=== PATIENT | female | born 1990 | race Hispanic/Latino ===

== ENCOUNTER 2019-01-19 17:25 | Emergency (ER) | payer OTHER, SELFPAY ==
[2019-01-19 17:32] VITALS: BP 118/73; PULSE 87; RESP 21; TEMP 37.2; O2SAT 100
--- NOTE | 2019-01-19 17:43 | PC.NURSE ---
25 weeks , reports, shortness of breath for 2 months, +dizziness. coughing non productive, evaluated by cardiology last sunday, ekg and echo, with no result at this time. denies fever,vomiting, denies vaginal dc. + movement. lmp july 26 a/m0
[2019-01-19] MEDS: ALBUTEROL 2.5 MG/3 ML NEB (ADULT) INH (17:52)
[2019-01-19 17:53] VITALS: PULSE 94; RESP 16; O2SAT 100
[2019-01-19 19:22] LABS: Add Manual Diff / Slide Review NO; Basophils Absolute Auto 0 /uL (0-100); Basophils Percent Auto 0.5 % (0-2); Eosinophils Absolute Auto 100 /uL (0-450); Eosinophils Percent Auto 1.4 % (2-4); Hematocrit 33.1 % (36-46); Hemoglobin 11.3 g/dL (12.0-16.0); Lymphocytes Absolute Auto 2400 /uL (1100-4500); Lymphocytes Percent Auto 27.8 % (25-40); Mean Corpuscular HGB Conc 34.3 % (30-36); Mean Corpuscular Hemoglobin 31.4 PG (26-34); Mean Corpuscular Volume 91.5 fL (80-100); Monocytes Absolute Auto 600 /uL (0-900); Monocytes Percent Auto 6.6 % (3-14); Neutrophils Absolute Auto 5500 /uL (1500-7000); Neutrophils Percent Auto 63.7 % (50-75); Platelet Count 228 X10^3/uL (150-400); Red Blood Cell Count 3.62 X10^6/uL (4.0-5.2); Red Cell Distribution Width 12.8 % (11.6-14.8); White Blood Cell Count 8.7 X10^3/uL (4.5-11.0)
[2019-01-19 19:38] LABS: Alanine Aminotransferase 11 IU/L (<35); Albumin 3.6 g/dL (3.5-5.0); Albumin Globulin Ratio 1.2 (1.0-2.8); Alkaline Phosphatase 72 U/L (38-126); Aspartate Aminotransferase 19 IU/L (14-36); B Type Natriuretic Peptide < 100 (<100); BUN Creatinine Ratio 22.5 (6-22); Bilirubin Total 0.3 mg/dL (0.2-1.3); Blood Urea Nitrogen 9 mg/dL (7-17); Calcium 8.6 mg/dL (8.4-10.2); Carbon Dioxide 24 mmol/L (22-32); Chloride 105 mmol/L (98-107); Estimated Glomerular Filt Rate > 60.0 mL/min (>60); Globulin 3.1 g/dL (1.7-4.1); Glucose 109 mg/dL (70-100); HEMOLYSIS < 15 (0-50); Potassium 3.6 mmol/L (3.4-5.1); Sodium 138 mmol/L (137-145); Total Protein 6.7 g/dL (6.3-8.2)
[2019-01-19] MEDS: ALBUTEROL HFA PREPACK 1 BOX MISC (20:24)
[2019-01-19 20:28] VITALS: BP 103/62; PULSE 84; RESP 16; TEMP 37; O2SAT 100
[2019-01-19 20:37] VITALS: PULSE 87; RESP 16; O2SAT 99
--- NOTE | 2019-01-19 21:11 | ED_ITS ---
HPI - SOB/Dyspnea <KHADRA Black - Last Filed: 01/19/19 21:15> General Chief Complaint: Shortness of Breath/Dyspnea Stated Complaint: Difficulty Breathing, Chest Hurts, Coughing Time Seen by Provider: 01/19/19 17:55 Source: patient and family Mode of arrival: Ambulatory Limitations: no limitations History of Present Illness HPI Narrative: The patient is a 28-year-old female who is 25 weeks who presents for chief complaint of shortness of breath for several weeks to months. She states she has seen his primary care provider for this. She has been referred to Cardiology and had an echo and other testing completed and is being seen by them for follow-up. She denies any fevers nausea vomiting or diarrhea. She denies any dysuria urgency or frequency. She denies any vaginal discharge. She states that sometimes she has a cough. She denies a productive cough. She states she is here because she never got any answers from Cardiology or PCP. She has not called them for follow-up. She states good movement. Related Data Previous Rx's Medication Instructions Recorded sulfamethoxazole-trimethoprim 1 tab PO BID 10 Days #0 tab 01/18/16 Allergies Allergy/AdvReac Type Severity Reaction Status Date / Time No Known Allergies Allergy Uncoded 06/27/17 12:31 Review of Systems <YAQUELIN Black - Last Filed: 01/19/19 21:15> Review of Systems Narrative: GENERAL: Denies chills, fatigue, malaise, fever, sweats. HEENT: Denies sinus pain, ear pain, sore throat, difficulty swallowing, dizziness. RESPIRATORY: See HPI CARDIOVASCULAR: Denies chest pain, palpitations, orthopnea, edema, GASTROINTESTINAL: Denies nausea, vomiting, abdominal pain, diarrhea, constipation, melena. : Denies dysuria, frequency, incontinence, hematuria, urinary retention. MUSCULOSKELETAL: denies weakness, joint pain, or bony pain SKIN: Denies rash, skin lesions, or other NEUROLOGIC: Denies weakness, headache, numbness, change in speech, confusion, seizures, incoordination. PSYCHIATRIC: No concerning psychosocial issues. 12 point review of systems is negative except for those stated above Exam <KHADRA Black - Last Filed: 01/19/19 21:15> Narrative Exam Narrative: GENERAL: This is a well-nourished, well-developed patient, in mild distress. HEAD: Atraumatic. Normocephalic. No temporal or scalp tenderness. EYES: Pupils equal round and reactive. Extraocular motions intact. No scleral icterus. No injection or drainage. ENT: Nose without bleeding, purulent drainage or septal hematoma. Throat without erythema, tonsillar hypertrophy or exudate. Uvula midline. Airway patent. NECK: Trachea midline. No JVD or lymphadenopathy. Supple, nontender, no meningeal signs. CARDIOVASCULAR: Regular rate and rhythm without murmurs, gallops, or rubs. RESPIRATORY: Clear to auscultation. Breath sounds equal bilaterally. No wheezes, rales, or rhonchi. Occasional bronchospastic cough. No increased respiratory effort. No accessory muscle use. No stridor. GASTROINTESTINAL: Abdomen soft, non-tender, nondistended. Fundus palpable. No hepato-splenomegaly, or palpable masses. No guarding. EXTREMITIES: No clubbing, cyanosis, or edema. No joint tenderness, effusion, or edema noted. BACK: Nontender without deformity or crepitance. No flank tenderness. NEURO: AOx3. SKIN: No rash or erythema. Initial Vital Signs Initial Vital Signs: Vital Signs Temperature 98.9 F 01/19/19 17:32 Pulse Rate 87 01/19/19 17:32 Respiratory Rate 21 01/19/19 17:32 Blood Pressure 118/73 01/19/19 17:32 Pulse Oximetry 100 01/19/19 17:32 <Anthony De Luna DO - Last Filed: 01/19/19 23:00> Initial Vital Signs Initial Vital Signs: Vital Signs Temperature 98.9 F 01/19/19 17:32 Pulse Rate 87 01/19/19 17:32 Respiratory Rate 21 01/19/19 17:32 Blood Pressure 118/73 01/19/19 17:32 Pulse Oximetry 100 01/19/19 17:32 Course <KHADRA Black - Last Filed: 01/19/19 21:15> Orders Ordered: ED Orders 01/19/19 17:37 RT Consult Eval and Treat NOW 01/19/19 18:07 EKG-12 Lead Stat 01/19/19 19:13 B Type Natriuretic Peptide Stat Complete Blood Count AUTO DIFF Stat Comprehensive Metabolic Panel Stat Discontinued Medications Albuterol (Ventolin) 2.5 mg INH NOW ONE Stop: 01/19/19 17:48 Last Admin: 01/19/19 17:52 Dose: 2.5 mg Documented by: JETT Albuterol (Ventolin Hfa Prepack) 1 box [facility] ONE Stop: 01/19/19 20:02 Last Admin: 01/19/19 20:24 Dose: 1 box Documented by: LREED Vital Signs Vital signs: Vital Signs - 8 hr 01/19/19 17:32 01/19/19 17:53 01/19/19 20:28 Temperature 98.9 F 98.6 F Pulse Rate 87 94 H 84 Respiratory Rate 21 16 16 Blood Pressure 118/73 Blood Pressure [Left Arm] 103/62 Pulse Oximetry 100 100 100 01/19/19 20:37 Temperature Pulse Rate 87 Respiratory Rate 16 Blood Pressure Blood Pressure [Left Arm] Pulse Oximetry 99 <Anthony De Luna DO - Last Filed: 01/19/19 23:00> Orders Ordered: ED Orders 01/19/19 17:37 RT Consult Eval and Treat NOW 01/19/19 18:07 EKG-12 Lead Stat 01/19/19 19:13 B Type Natriuretic Peptide Stat Complete Blood Count AUTO DIFF Stat Comprehensive Metabolic Panel Stat Discontinued Medications Albuterol (Ventolin) 2.5 mg INH NOW ONE Stop: 01/19/19 17:48 Last Admin: 01/19/19 17:52 Dose: 2.5 mg Documented by: JETT Albuterol (Ventolin Hfa Prepack) 1 box [facility] ONE Stop: 01/19/19 20:02 Last Admin: 01/19/19 20:24 Dose: 1 box Documented by: LREED Vital Signs Vital signs: Vital Signs - 8 hr 01/19/19 17:32 01/19/19 17:53 01/19/19 20:28 Temperature 98.9 F 98.6 F Pulse Rate 87 94 H 84 Respiratory Rate 21 16 16 Blood Pressure 118/73 Blood Pressure [Left Arm] 103/62 Pulse Oximetry 100 100 100 01/19/19 20:37 Temperature Pulse Rate 87 Respiratory Rate 16 Blood Pressure Blood Pressure [Left Arm] Pulse Oximetry 99 MDM - SOB/Dyspnea <KHADRA Black - Last Filed: 01/19/19 21:15> Lab Data Result diagrams: 01/19/19 19:13 01/19/19 19:13 Labs: Lab Results 01/19/19 01/19/19 Range/Units 19:13 19:13 WBC 8.7 (4.5-11.0) X10^3/uL RBC 3.62 L (4.0-5.2) X10^6/uL Hgb 11.3 L (12.0-16.0) g/dL Hct 33.1 L (36-46) % MCV 91.5 (80-100) fL MCH 31.4 (26-34) PG MCHC 34.3 (30-36) % RDW 12.8 (11.6-14.8) % Plt Count 228 (150-400) X10^3/uL Neut % (Auto) 63.7 (50-75) % Lymph % (Auto) 27.8 (25-40) % [place] % (Auto) 6.6 (3-14) % Eos % (Auto) 1.4 L (2-4) % Baso % (Auto) 0.5 (0-2) % Neut # (Auto) 5500 (8771-1086) /uL Lymph # (Auto) 2400 (6323-6804) /uL [place] # (Auto) 600 (0-900) /uL Eos # (Auto) 100 (0-450) /uL Baso # (Auto) 0 (0-100) /uL Sodium 138 (137-145) mmol/L Potassium 3.6 (3.4-5.1) mmol/L Chloride 105 (98-107) mmol/L Carbon Dioxide 24 (22-32) mmol/L BUN 9 (7-17) mg/dL Creatinine 0.40 L (0.52-1.04) mg/dL Estimated GFR > 60.0 (>60) mL/min BUN/Creatinine Ratio 22.5 H (6-22) Glucose 109 H (70-100) mg/dL Calcium 8.6 (8.4-10.2) mg/dL Total Bilirubin 0.3 (0.2-1.3) mg/dL AST 19 (14-36) IU/L ALT 11 (<35) IU/L Alkaline Phosphatase 72 (38-126) U/L B-Natriuretic Peptide < 100 (<100) Total Protein 6.7 (6.3-8.2) g/dL Albumin 3.6 (3.5-5.0) g/dL Globulin 3.1 (1.7-4.1) g/dL Albumin/Globulin Ratio 1.2 (1.0-2.8) Urine Dip Bedside Urine Glucose Negative Bedside Urine Bilirubin - Negative Bedside Urine Ketone +/- 5 Urine Specific [place] 1.025 Bedside Urine Occult Blood - Negative Bedside Urine pH 6 Bedside Urine Protein +/- 15 Bedside Urine Urobilinogen +/- 1mg Bedside Urine Nitrite - Negative Bedside Urine Leukocytes - Negative Esterase ECG Data Attestation: I personally reviewed and interpreted this ECG as follows: Interpretation: Sinus tachycardia. Ventricular rate 101. P.r. interval 127. QRS duration 89. No ectopy noted. No ST elevation or depression noted. MDM Narrative Medical decision making narrative: The patient is a 28-year-old female who presents for chief complaint of continued shortness of which has been ongoing for the past several weeks to months. She is . She is in no acute respiratory distress, she is not hypoxic and not tachycardic exam. She has been evaluated with an echocardiogram, and seen primary care as well as sheet sorter and Cardiology. I have decreased suspicion of AA PE as she is not tachycardic, not hypoxic and this cough has been going on for weeks. Her shortness of breath is associated with cough. Her cough did respond well in the emergency department to a dose of albuterol, so she was given spacer training as well as a take, but albuterol. Urine has no signs of infection and her heart tones were in the 140s. I discussed at length the importance of follow-up with PCP as well as OBGYN. She has no questions or concerns upon discharge and states understanding of return precautions as well as follow-up care. <Anthony De Luna, DO - Last Filed: 01/19/19 23:00> Lab Data Labs: Lab Results 01/19/19 01/19/19 Range/Units 19:13 19:13 WBC 8.7 (4.5-11.0) X10^3/uL RBC 3.62 L (4.0-5.2) X10^6/uL Hgb 11.3 L (12.0-16.0) g/dL Hct 33.1 L (36-46) % MCV 91.5 (80-100) fL MCH 31.4 (26-34) PG MCHC 34.3 (30-36) % RDW 12.8 (11.6-14.8) % Plt Count 228 (150-400) X10^3/uL Neut % (Auto) 63.7 (50-75) % Lymph % (Auto) 27.8 (25-40) % [place] % (Auto) 6.6 (3-14) % Eos % (Auto) 1.4 L (2-4) % Baso % (Auto) 0.5 (0-2) % Neut # (Auto) 5500 (5642-1212) /uL Lymph # (Auto) 2400 (9142-9919) /uL [place] # (Auto) 600 (0-900) /uL Eos # (Auto) 100 (0-450) /uL Baso # (Auto) 0 (0-100) /uL Sodium 138 (137-145) mmol/L Potassium 3.6 (3.4-5.1) mmol/L Chloride 105 (98-107) mmol/L Carbon Dioxide 24 (22-32) mmol/L BUN 9 (7-17) mg/dL Creatinine 0.40 L (0.52-1.04) mg/dL Estimated GFR > 60.0 (>60) mL/min BUN/Creatinine Ratio 22.5 H (6-22) Glucose 109 H (70-100) mg/dL Calcium 8.6 (8.4-10.2) mg/dL Total Bilirubin 0.3 (0.2-1.3) mg/dL AST 19 (14-36) IU/L ALT 11 (<35) IU/L Alkaline Phosphatase 72 (38-126) U/L B-Natriuretic Peptide < 100 (<100) Total Protein 6.7 (6.3-8.2) g/dL Albumin 3.6 (3.5-5.0) g/dL Globulin 3.1 (1.7-4.1) g/dL Albumin/Globulin Ratio 1.2 (1.0-2.8) Urine Dip Bedside Urine Glucose Negative Bedside Urine Bilirubin - Negative Bedside Urine Ketone +/- 5 Urine Specific [place] 1.025 Bedside Urine Occult Blood - Negative Bedside Urine pH 6 Bedside Urine Protein +/- 15 Bedside Urine Urobilinogen +/- 1mg Bedside Urine Nitrite - Negative Bedside Urine Leukocytes - Negative Esterase Discharge Plan Departure Patient Disposition: Home Clinical Impression: Cough, Breath shortness, Asthma Discharge Date/Time: 01/19/19 21:12 Instructions: DI for Asthma -- Adult, DI for Shortness of Breath Activity Restrictions/Additional Instructions: Your lab work came back Grossly normal today. Your responded well to albuterol, so I gave you a prescription take-home pack and spacer. Please follow up with primary care Provider in OBGYN as soon as possible. I also suggest you continue to follow up with Cardiology as previously suggested Please come back to the emergency department for any acute concerns. Prescriptions: No Action sulfamethoxazole-trimethoprim 800 MG/160 MG tablet 1 tab PO BID 10 Days Qty: 0 RF: 0 Referrals: Le Vergara MD [Non-Staff] - <Anthony De Luna DO - Last Filed: 01/19/19 23:00> Sign Out Provider Sign Out Attestation: Dr eD Luna Co-Sign Statement: I was available for consultation during this patient's emergency department visit. This chart is signed by myself for administrative purposes only. I did not have direct contact with this patient during this visit. They were seen independently by the APC.
== END 2019-01-19 21:12 | disposition home or self-care (01) ==
PROVIDERS: Emergency Provider Nurse Practitioner Family
DX: R05 Cough (principal); R06.02 Shortness of breath; J45.909 Unspecified asthma, uncomplicated; R00.0 Tachycardia, unspecified
CPT/HCPCS: 80053; 81003; 83880; 85025; 93005; 93010; 94150; 94640; 99283; 99284; J7613

== ENCOUNTER → 2019-09-17 10:17 | Outpatient (CLI) | payer OTHER, SELFPAY ==
--- NOTE | 2019-09-17 10:21 | DI.RAD.S_ITS ---
PROCEDURE: XR HIP W PEL IF DONE RT 2V INDICATIONS: R hip pain x approx 10 months starting while . TECHNIQUE: AP pelvis with lateral view(s) of the right hip(s). COMPARISON: None. FINDINGS: Bones: No acute fracture or dislocation is evident involving the right hip. There no significant degenerative changes. No suspicious osseous lesions are evident. The remainder of the image osseous structures of the pelvis appear to be grossly intact. There may be mild degenerative changes of the included lower lumbar spine, not adequately characterized. Soft tissues: The visualized bowel gas pattern is normal. No suspicious soft tissue calcifications. IMPRESSION: Unremarkable right hip radiographs. No fractures or significant degenerative changes. Dictated by: Anrde Gleason M.D. on 09/17/2019 at 10:08 Approved by: Andre Gleason M.D. on 09/17/2019 at 10:12
== END ==
PROVIDERS: Referring Provider Registered Nurse Diabetes Educator; Visit Provider Registered Nurse Diabetes Educator
DX: M25.551 Pain in right hip (principal)
CPT/HCPCS: 73502

== ENCOUNTER 2020-03-15 23:57 | Emergency (ER) | payer OTHER, SELFPAY ==
[2020-03-16 00:03] VITALS: BP 115/63; PULSE 89; RESP 24; TEMP 36.9; O2SAT 100
[2020-03-16 00:27] LABS: Add Manual Diff / Slide Review NO; Basophils Absolute Auto 100 /uL (0-100); Basophils Percent Auto 0.9 % (0-2); Eosinophils Absolute Auto 400 /uL (0-450); Eosinophils Percent Auto 4.8 % (2-4); Hematocrit 39.1 % (36-46); Hemoglobin 13.2 g/dL (12.0-16.0); Lymphocytes Absolute Auto 3600 /uL (1100-4500); Lymphocytes Percent Auto 42.4 % (25-40); Mean Corpuscular HGB Conc 33.8 % (30-36); Mean Corpuscular Hemoglobin 30.4 PG (26-34); Monocytes Absolute Auto 500 /uL (0-900); Monocytes Percent Auto 6.2 % (3-14); Neutrophils Absolute Auto 3900 /uL (1500-7000); Neutrophils Percent Auto 45.7 % (50-75); Platelet Count 238 X10^3/uL (150-400); Red Blood Cell Count 4.34 X10^6/uL (4.0-5.2); Red Cell Distribution Width 12.5 % (11.6-14.8); White Blood Cell Count 8.5 X10^3/uL (4.5-11.0)
--- NOTE | 2020-03-16 00:30 | ED.ABDPAIN ---
HPI - Abdominal Pain General Chief Complaint: Abdominal Pain Stated Complaint: severe pain in abd/pelvic area Time Seen by Provider: 03/16/20 00:30 Source: patient Mode of arrival: Ambulatory History of Present Illness HPI narrative: 29-year-old presents with severe left pelvic pain. She describes having some mild cramps on both March 10 and and she is tumors that this was just cramping. On the at 11:00 p.m. she began having severe pain initially on the right side than radiating into the left lower quadrant. As she walks into the emergency room she is having difficulty standing up and has a shuffling gait. She describes no fevers, no new sexual contacts, no vaginal discharge, no dysuria, chest pain, dyspnea, diarrhea. Related Data Home Medications Medication Instructions Recorded Confirmed No Known Home Medications 09/08/19 09/08/19 Allergies Allergy/AdvReac Type Severity Reaction Status Date / Time adhesive tape Allergy Severe buned skin Verified 09/08/19 16:04 shrimp Allergy Severe closes Verified 09/08/19 16:04 throat [place] Allergy Severe blisters Uncoded 09/08/19 16:04 and swollen tongue No Known Allergies Allergy Uncoded 06/27/17 12:31 Review of Systems Review of Systems ROS Unobtainable: All systems reviewed & are unremarkable except as noted in HPI and below Patient History Medical History (Updated 03/16/20 @ 04:17 by Jocelyne Saleem MD) Hip pain Social History Smoking Status: Never smoker second hand exposure: No alcohol intake: current (occassionaly) substance use type: does not use Smoking Status: Never smoker Exam Narrative Exam Narrative: General: Healthy appearing, in significant distress with low pelvic pain unable to stand up straight, able to give a complete coherent history HEENT: Moist mucous membranes, normal sclera with reactive pupils, Respiratory: Lungs are clear to auscultation, no wheezing no rales no rhonchi. Full and symmetrical air movement Cardiac: Regular rate and rhythm no murmurs no bruits Abdomen: Soft, exquisitely tender in lower quadrants no flank pain Skin: Warm and dry, no rashes Neurologic: Grossly neurologically intact with no obvious asymmetries or abnormalities Extremities: No trauma, well perfused Pelvic: Healthy appearing external genitalia, no vaginal discharge, no tenderness vaginal introitus. Significant tenderness in the posterior portion of the vagina with significant cervical motion tenderness. Psych: Cooperative, appropriate insight and affect Initial Vital Signs Initial Vital Signs: Vital Signs Temperature 98.4 F 03/16/20 00:03 Pulse Rate 89 03/16/20 00:03 Respiratory Rate 24 03/16/20 00:03 Blood Pressure 115/63 03/16/20 00:03 Pulse Oximetry 100 03/16/20 00:03 Course Orders Ordered: ED Orders 03/16/20 EKG-12 Lead Stat 03/16/20 00:15 Complete Blood Count AUTO DIFF Stat Comprehensive Metabolic Panel Stat Lipase Stat Partial Thromboplastin Time Stat Prothrombin Time INR Stat 03/16/20 00:30 Chlamydia Gonorrhea PCR -URINE Stat 03/16/20 00:41 US pelvic complete Stat 03/16/20 01:54 CT abdomen pelvis w con Stat Discontinued Medications Ketorolac Tromethamine (Ketorolac 60 Mg/2 Ml Vial) 15 mg IV NOW ONE Stop: 03/16/20 00:42 Last Admin: 03/16/20 00:48 Dose: 15 mg Documented by: ADRIANNA Vital Signs Vital signs: Vital Signs - 8 hr 03/16/20 00:03 Temperature 98.4 F Pulse Rate 89 Respiratory Rate 24 Blood Pressure 115/63 Pulse Oximetry 100 MDM - Abdominal Pain Medical Records Attestation: I reviewed the patient's medical records. Lab Data Attestation: I reviewed the patient's lab results. Result diagrams: 03/16/20 00:15 03/16/20 00:15 Labs: Lab Results 03/16/20 03/16/20 03/16/20 Range/Units 00:15 00:15 00:15 WBC 8.5 (4.5-11.0) X10^3/uL RBC 4.34 (4.0-5.2) X10^6/uL Hgb 13.2 (12.0-16.0) g/dL Hct 39.1 (36-46) % MCV 90.0 (80-100) fL MCH 30.4 (26-34) PG MCHC 33.8 (30-36) % RDW 12.5 (11.6-14.8) % Plt Count 238 (150-400) X10^3/uL Neut % (Auto) 45.7 L (50-75) % Lymph % (Auto) 42.4 H (25-40) % [place] % (Auto) 6.2 (3-14) % Eos % (Auto) 4.8 H (2-4) % Baso % (Auto) 0.9 (0-2) % Neut # (Auto) 3900 (4097-9760) /uL Lymph # (Auto) 3600 (2552-1603) /uL [place] # (Auto) 500 (0-900) /uL Eos # (Auto) 400 (0-450) /uL Baso # (Auto) 100 (0-100) /uL PT 11.8 (10.1-12.7) SECONDS INR 1.0 (0.9-1.3) APTT 32 (26.4-36.2) SECONDS Sodium 137 (137-145) mmol/L Potassium 3.7 (3.4-5.1) mmol/L Chloride 105 (98-107) mmol/L Carbon Dioxide 26 (22-32) mmol/L BUN 15 (7-17) mg/dL Creatinine 0.50 L (0.52-1.04) mg/dL Estimated GFR > 60.0 (>60) mL/min BUN/Creatinine Ratio 30.0 H (6-22) Glucose 111 H (70-100) mg/dL Calcium 9.5 (8.4-10.2) mg/dL Total Bilirubin 0.3 (0.2-1.3) mg/dL AST 21 (14-36) IU/L ALT 12 (<35) IU/L Alkaline Phosphatase 69 (38-126) U/L Total Protein 8.3 H (6.3-8.2) g/dL Albumin 4.5 (3.5-5.0) g/dL Globulin 3.8 (1.7-4.1) g/dL Albumin/Globulin Ratio 1.2 (1.0-2.8) Lipase 47 (23-300) U/L Ur Chlamydia DNA (PCR) N gonorrhoeae DNA (PCR) 03/16/20 Range/Units 00:30 WBC (4.5-11.0) X10^3/uL RBC (4.0-5.2) X10^6/uL Hgb (12.0-16.0) g/dL Hct (36-46) % MCV (80-100) fL MCH (26-34) PG MCHC (30-36) % RDW (11.6-14.8) % Plt Count (150-400) X10^3/uL Neut % (Auto) (50-75) % Lymph % (Auto) (25-40) % [place] % (Auto) (3-14) % Eos % (Auto) (2-4) % Baso % (Auto) (0-2) % Neut # (Auto) (6841-8702) /uL Lymph # (Auto) (4489-7407) /uL [place] # (Auto) (0-900) /uL Eos # (Auto) (0-450) /uL Baso # (Auto) (0-100) /uL PT (10.1-12.7) SECONDS INR (0.9-1.3) APTT (26.4-36.2) SECONDS Sodium (137-145) mmol/L Potassium (3.4-5.1) mmol/L Chloride (98-107) mmol/L Carbon Dioxide (22-32) mmol/L BUN (7-17) mg/dL Creatinine (0.52-1.04) mg/dL Estimated GFR (>60) mL/min BUN/Creatinine Ratio (6-22) Glucose (70-100) mg/dL Calcium (8.4-10.2) mg/dL Total Bilirubin (0.2-1.3) mg/dL AST (14-36) IU/L ALT (<35) IU/L Alkaline Phosphatase (38-126) U/L Total Protein (6.3-8.2) g/dL Albumin (3.5-5.0) g/dL Globulin (1.7-4.1) g/dL Albumin/Globulin Ratio (1.0-2.8) Lipase (23-300) U/L Ur Chlamydia DNA (PCR) Not detected N gonorrhoeae DNA (PCR) Not detected Point of care testing: Point of Care Testing Test Results Negative Urine Dip Bedside Urine Glucose Negative Bedside Urine Bilirubin - Negative Bedside Urine Ketone - Negative Urine Specific [place] 1.030 Bedside Urine Occult Blood +/- Bedside Urine pH 6.0 Bedside Urine Protein - Negative Bedside Urine Urobilinogen - Negative Bedside Urine Nitrite - Negative Bedside Urine Leukocytes - Negative Esterase Imaging Data Pelvic ultrasound: Radiologist's Impression: No significant abnormality specifically no ovarian torsion or cysts Satish Hull MD CT scan - abdomen/pelvis: Radiologist's Impression: Small amount of free fluid in the pelvis and what I suspect is a collapsing cyst/follicle in the right adnexa Appendix and gallbladder are unremarkable Alvaro Stuart MD ECG Data Attestation: I personally reviewed and interpreted this ECG as follows: Interpretation: Sinus rhythm at a rate of 89 Normal intervals, normal axis No acute ischemic changes MDM Narrative Medical decision making narrative: 29-year-old woman with no significant medical history presents with 3-4 days of crampy pelvic pain and then dramatic onset of severe initially right-sided than left pelvic pain onset 11:00 p.m. last night. No evidence of significant infection. No vaginal discharge to suggest pelvic inflammatory disease. She is not so ectopic is not a concern. With the severity of her pain possibility of ovarian torsion was entertained and ruled out based on ultrasound. Pain persisted and CT scan was obtained. Probable ruptured adnexal cyst. Over the course of her 5 our emergency room stay and with a single dose of IV Toradol her pain is continued to improve. At the time of discharge she is able to stand up straight and has only minimal pain which is very consistent with a ruptured cyst. No evidence active internal bleeding. Findings reviewed with patient, questions are answered. She is safe for home discharge Discharge Plan Departure Patient Disposition: Home Clinical Impression: Adnexal cyst Instructions: DI for Ovarian Cyst Activity Restrictions/Additional Instructions: Thank you for coming in today Due to the severity of your pain a thorough workup was done in the emergency department. There is no evidence of significant infection, appendicitis, twisted ovary or other surgical complication. The CT scan suggests that there is a cyst in your right adnexa, the space between your uterus in your ovary, that likely has acutely ruptured which cause this severe pain last night and explains why the pain is improving over the course of your emergency room stay. There is no evidence of acute bleeding or other life-threatening findings. Using 400 mg of ibuprofen (2 [id number] pills) and 1 Tylenol every 6 hours can be very helpful in controlling pain. If you notice that you are having worsening pain, developed fevers, new vaginal discharge, become dizzy or lightheaded it would be very appropriate to return to the emergency department for further evaluation I hope you feel better Prescriptions: No Action No Known Home Medications RF: 0
[2020-03-16 00:35] LABS: Alanine Aminotransferase 12 IU/L (<35); Albumin 4.5 g/dL (3.5-5.0); Albumin Globulin Ratio 1.2 (1.0-2.8); Alkaline Phosphatase 69 U/L (38-126); Aspartate Aminotransferase 21 IU/L (14-36); Bilirubin Total 0.3 mg/dL (0.2-1.3); Blood Urea Nitrogen 15 mg/dL (7-17); Calcium 9.5 mg/dL (8.4-10.2); Carbon Dioxide 26 mmol/L (22-32); Chloride 105 mmol/L (98-107); Estimated Glomerular Filt Rate > 60.0 mL/min (>60); Globulin 3.8 g/dL (1.7-4.1); Glucose 111 mg/dL (70-100); HEMOLYSIS < 15 (0-50); Lipase 47 U/L (23-300); Potassium 3.7 mmol/L (3.4-5.1); Sodium 137 mmol/L (137-145); Total Protein 8.3 g/dL (6.3-8.2)
[2020-03-16 00:36] LABS: Prothrombin Time 11.8 SECONDS (10.1-12.7)
[2020-03-16 00:38] LABS: PTT Partial Thromboplastin Tim 32 SECONDS (26.4-36.2)
--- NOTE | 2020-03-16 00:41 | DI.US.S_ITS ---
PROCEDURE: US PELVIC COMPLETE INDICATIONS: PAIN; POSSIBLE TORSION TECHNIQUE: Real-time scanning was performed of the pelvic organs, with image documentation. Additional endovaginal scanning was necessary due to incomplete visualization of the adnexal and endometrial structures by transabdominal scanning. COMPARISON: None. FINDINGS: Transabdominal scanning: Limited scanning through the kidneys shows no hydronephrosis. No pathologic free abdominal or pelvic fluid. Endovaginal scanning: Uterus: Uterus is normal in size at 4.7 x 7.1 x 9.8 cm. The endometrium measures 7.8 mm in combined thickness. Ovaries: The right ovary measures 2.2 x 2.1 x 4.0 cm and the left measures 1.8 x 2.6 x 1.7 cm with normal vascularity. IMPRESSION: Normal examination, no evidence of torsion involving the ovaries. No abnormal free fluid is found. Dictated by: Minesh Lomeli M.D. on 03/16/2020 at 8:57 Approved by: Minesh Lomeli M.D. on 03/16/2020 at 8:58
[2020-03-16] MEDS: KETOROLAC 60 MG/2 ML VIAL 15 MG IV (00:48)
--- NOTE | 2020-03-16 01:54 | DI.CT.S_ITS ---
PROCEDURE: CT ABDOMEN PELVIS W CON INDICATIONS: Left lower quadrant and pelvic pain. US non-diagnositic TECHNIQUE: After the administration of intravenous contrast, 5 mm thick sections acquired from the diaphragm to the symphysis. 5 mm coronal and sagittal reformats were acquired. For radiation dose reduction, the following was used: automated exposure control, adjustment of mA and/or kV according to patient size. COMPARISON: [facility], US, US PELVIC COMPLETE, 03/16/2020, 1:09. FINDINGS: Image quality: Excellent. ABDOMEN: Lung bases: Lung bases are clear. Heart size is normal. Solid organs: Liver is normal in size and enhancement. Gallbladder is normal. Biliary system is non dilated. Pancreas enhances normally. Spleen is normal in size and enhancement. No adrenal nodules. Kidneys demonstrate normal size and enhancement, without hydronephrosis. Peritoneum and bowel: There is a moderate amount of stool in colon. Normal appendix. Bowel loops demonstrate normal wall thickness and caliber. No free fluid or air. Nodes and vessels: No retroperitoneal or mesenteric adenopathy by size criteria. Aorta and inferior vena cava are normal in size. Miscellaneous: No ventral hernias. PELVIS: Genitourinary: Bladder wall thickness is normal. Uterus is normal. Ovaries are not well seen. A small amount of free fluid in the cul-de-sac. Miscellaneous: No inguinal hernias or adenopathy. Bones: No suspicious bony lesions. No vertebral body compression fractures. IMPRESSION: 1. There is a small amount of free fluid in the cul-de-sac. Ovaries are not well seen on CT but well visualized and appear normal on the comparison ultrasound. 2. A moderate amount of stool in colon. No significant discrepancy with the date night caregiver radiology preliminary report. Dictated by: Dari Paige M.D. on 03/16/2020 at 7:34 Approved by: Dari Paige M.D. on 03/16/2020 at 7:40
[2020-03-16 02:13] LABS: Urine N gonorrhoeae NOT DETECTED
[2020-03-16 02:16] LABS: Urine Chlamydia NOT DETECTED
[2020-03-16 04:44] VITALS: O2SAT 100
[2020-03-16 04:45] VITALS: BP 104/64; PULSE 79; O2SAT 98
[2020-03-16 04:51] VITALS: TEMP 36.7
== END 2020-03-16 04:43 | disposition home or self-care (01) ==
PROVIDERS: Emergency Provider Emergency Medicine
DX: N94.9 Unspecified condition associated with female genital organs and menstrual cycle (principal); R10.2 Pelvic and perineal pain; R07.9 Chest pain, unspecified
CPT/HCPCS: 36415; 74177; 76830; 76856; 80053; 81003; 81025; 83690; 85025; 85610; 85730; 87491; 87591; 93005; 96374; 99284; J1885; Q9967

== ENCOUNTER → 2020-04-24 09:46 | Outpatient (CLI) | payer OTHER, SELFPAY ==
[2020-04-24 12:38] LABS: COVID19 -Nasal RAPID Negative (Negative)
== END ==
PROVIDERS: PCP Family Medicine; Visit Provider Nurse Practitioner
DX: Z20.822 Contact with and (suspected) exposure to COVID-19 (principal)
CPT/HCPCS: 87635

== ENCOUNTER → 2020-06-04 10:51 | Outpatient (CLI) | payer OTHER, SELFPAY ==
[2020-06-04 11:32] LABS: Add Manual Diff / Slide Review NO; Basophils Absolute Auto 0 /uL (0-100); Basophils Percent Auto 0.8 % (0-2); Eosinophils Absolute Auto 300 /uL (0-450); Eosinophils Percent Auto 6.6 % (2-4); Hematocrit 39.4 % (36-46); Hemoglobin 13.3 g/dL (12.0-16.0); Lymphocytes Absolute Auto 2100 /uL (1100-4500); Lymphocytes Percent Auto 40.8 % (25-40); Mean Corpuscular HGB Conc 33.8 % (30-36); Mean Corpuscular Hemoglobin 30.3 PG (26-34); Mean Corpuscular Volume 89.6 fL (80-100); Monocytes Absolute Auto 500 /uL (0-900); Neutrophils Absolute Auto 2200 /uL (1500-7000); Neutrophils Percent Auto 41.8 % (50-75); Platelet Count 231 X10^3/uL (150-400); Red Cell Distribution Width 12.3 % (11.6-14.8); White Blood Cell Count 5.2 X10^3/uL (4.5-11.0)
[2020-06-04 11:36] LABS: Hemoglobin A1C% w Est Avg Glu 5.2 % (4.0-6.0)
[2020-06-04 11:53] LABS: Alanine Aminotransferase 11 IU/L (<35); Albumin 4.6 g/dL (3.5-5.0); Albumin Globulin Ratio 1.4 (1.0-2.8); Alkaline Phosphatase 65 U/L (38-126); Aspartate Aminotransferase 27 IU/L (14-36); BUN Creatinine Ratio 26.3 (6-22); Bilirubin Total 0.5 mg/dL (0.2-1.3); Blood Urea Nitrogen 15 mg/dL (7-17); Calcium 9.1 mg/dL (8.4-10.2); Carbon Dioxide 25 mmol/L (22-32); Chloride 103 mmol/L (98-107); Estimated Glomerular Filt Rate > 60.0 mL/min (>60); Globulin 3.4 g/dL (1.7-4.1); Glucose 89 mg/dL (70-100); HEMOLYSIS < 15 (0-50); Sodium 138 mmol/L (137-145)
[2020-06-04 13:06] LABS: TSH w/ Reflex to FT4 1.41 uIU/mL (0.47-4.68)
[2020-06-04 14:30] LABS: Follicle Stimulating Hormone 2.71 mIU/mL
[2020-06-09 10:36] LABS: Percent Free Testosterone 3.07 % (0.50-2.80); Testosterone Free 0.47 ng/dL (0.10-0.85); Testosterone Total 15.2 ng/dL (10.0-55.0)
== END ==
PROVIDERS: PCP Registered Nurse Diabetes Educator; Referring Provider Family Medicine; Visit Provider Family Medicine
DX: E28.2 Polycystic ovarian syndrome (principal); Z30.09 Encounter for other general counseling and advice on contraception; T78.3XXS Angioneurotic edema, sequela; L68.0 Hirsutism
CPT/HCPCS: 36415; 80053; 83001; 83036; 84402; 84403; 84443; 85025

== ENCOUNTER 2022-04-12 08:29 | Emergency (ER) | payer OTHER, SELFPAY ==
[2022-04-12 08:40] VITALS: BP 121/75; PULSE 77; RESP 15; TEMP 36.5; O2SAT 100; BMI 24.7
[2022-04-12 09:12] LABS: Add Manual Diff / Slide Review NO; Basophils Absolute Auto 0 /uL (0-100); Basophils Percent Auto 0.7 % (0-2); Eosinophils Absolute Auto 500 /uL (0-450); Eosinophils Percent Auto 7.1 % (2-4); Hematocrit 38.3 % (36-46); Lymphocytes Absolute Auto 1700 /uL (1100-4500); Lymphocytes Percent Auto 25.4 % (25-40); Mean Corpuscular Hemoglobin 31.2 PG (26-34); Mean Corpuscular Volume 91.7 fL (80-100); Monocytes Absolute Auto 400 /uL (0-900); Monocytes Percent Auto 6.7 % (3-14); Neutrophils Absolute Auto 4000 /uL (1500-7000); Neutrophils Percent Auto 60.1 % (50-75); Platelet Count 249 X10^3/uL (150-400); Red Blood Cell Count 4.18 X10^6/uL (4.0-5.2); Red Cell Distribution Width 12.7 % (11.6-14.8); White Blood Cell Count 6.7 X10^3/uL (4.5-11.0)
[2022-04-12 09:22] LABS: Alanine Aminotransferase 48 IU/L (<35); Albumin 4.4 g/dL (3.5-5.0); Albumin Globulin Ratio 1.1 (1.0-2.8); Alkaline Phosphatase 64 U/L (38-126); Aspartate Aminotransferase 93 IU/L (14-36); BUN Creatinine Ratio 27.8 (6-22); Bilirubin Total 0.7 mg/dL (0.2-1.3); Blood Urea Nitrogen 15 mg/dL (7-17); Calcium 8.9 mg/dL (8.4-10.2); Carbon Dioxide 28 mmol/L (22-32); Chloride 102 mmol/L (98-107); Estimated Glomerular Filt Rate > 60 mL/min (>60); Globulin 3.9 g/dL (1.7-4.1); Glucose 93 mg/dL (70-100); HEMOLYSIS < 15 (0-50); Lipase 41 U/L (23-300); Potassium 4.1 mmol/L (3.4-5.1); Sodium 139 mmol/L (137-145); Total Protein 8.3 g/dL (6.3-8.2)
--- NOTE | 2022-04-12 10:43 | DI.US.S_ITS ---
PROCEDURE: US ABDOMEN LIMITED INDICATIONS: RUQ PAIN TECHNIQUE: Real-time focused scanning was performed of the abdomen, with image documentation. COMPARISON: None. FINDINGS: Liver measures 15 cm. Overall echotexture is within normal limits. Normal appearance of the gallbladder and biliary tree on ultrasound. CBD measures 3 mm. Pancreas is not well seen. IMPRESSION: No acute right upper quadrant sonographic abnormality. Dictated by: Nadir Waters M.D. on 04/12/2022 at 11:22 Approved by: Nadir Waters M.D. on 04/12/2022 at 11:22
--- NOTE | 2022-04-12 10:48 | ED.ABDPAIN ---
HPI - Abdominal Pain General Chief Complaint: Abdominal Pain Stated Complaint: bad stomach pain for a few days, lower rt f/b Time Seen by Provider: 04/12/22 10:01 Source: patient Mode of arrival: Ambulatory History of Present Illness HPI narrative: Patient here for intermittent right upper quadrant pain that radiates to right mid back and right shoulder. Denies any pain at this moment. Has had this off and on in the past. Over the we can she flew to [place] and did go out and did drink small amount of alcohol on Sunday night. Just a few drinks she states. She returned back on Sunday. Pain has been going since Sunday. Off and on. But none now. She states she does get diarrhea with eating. She has changed her diet to healthy eating. Mostly vegetables. She eats broccoli and cauliflower. She still has her gallbladder. No nausea or vomiting. No fever chills. No skin discoloration. No urinary complaints. Related Data Previous Rx's Medication Instructions Recorded epinephrine 0.3 mg/0.3 mL 0.3 mg (0.3 mL) IM ONCE PRN 06/04/20 injection, auto-injector anaphylaxis #2 ea montelukast 10 mg tablet 10 mg PO DAILY #30 tabs 06/04/20 (Singulair) norethindrone (contraceptive) 0.35 0.35 mg PO DAILY #84 tabs 06/04/20 mg tablet prednisone 20 mg tablet 40 mg PO DAILY PRN swelling #40 06/04/20 tabs spironolactone 100 mg tablet 100 mg PO DAILY #90 tabs 06/16/20 Allergies Allergy/AdvReac Type Severity Reaction Status Date / Time adhesive tape Allergy Severe buned skin Verified 06/04/20 10:09 shrimp Allergy Severe closes Verified 06/04/20 10:09 throat Sulfa (Sulfonamide Allergy Verified 04/12/22 08:45 Antibiotics) [place] Allergy Severe blisters Uncoded 06/04/20 10:09 and swollen tongue Review of Systems Review of Systems Narrative: GENERAL: negative chills, fatigue, malaise, fever, sweats. HEENT: negative sinus pain, ear pain, sore throat RESPIRATORY: negative dyspnea, cough CARDIOVASCULAR: negative chest pain, palpitations GASTROINTESTINAL: negative nausea, vomiting, positive diarrhea and abdominal pain : negative dysuria, frequency, hematuria MUSCULOSKELETAL: negative muscle or bony pain SKIN: negative rash, skin lesions NEUROLOGIC: negative weakness, numbness ROS Unobtainable: All systems reviewed & are unremarkable except as noted in HPI and below Patient History Medical History Abscess of left thigh Adnexal cyst Angioedema control counseling Migraine without aura Multiple food allergies PCOS (polycystic ovarian syndrome) Social History Smoking Status: Never smoker second hand exposure: No alcohol intake: current substance use type: does not use Smoking Status: Never smoker alcohol intake frequency: holidays/special occasions only Substance Use Type: does not use Exam Narrative Exam Narrative: GENERAL: in no distress, not toxic not dyspneic HEAD: Normocephalic. EYES: Pupils equal round no icterus ENT: Mucous membranes moist. NECK: Trachea midline. CARDIOVASCULAR: Regular rate and rhythm without murmurs RESPIRATORY: Clear to auscultation. Breath sounds equal bilaterally. No wheezes, rales, or rhonchi. GASTROINTESTINAL: Abdomen soft, non-tender, no right upper quadrant tenderness. Negative Da Silva sign. No CVA tenderness. Bowel sounds are present. No peritoneal signs. EXTREMITIES: No gross deformities. BACK: No flank tenderness. NEURO: AOx4. SKIN: Warm and dry, not jaundice PSYCH: Not anxious, is cooperative Initial Vital Signs Initial Vital Signs: Vital Signs Temperature 97.7 F 04/12/22 08:40 Pulse Rate 77 04/12/22 08:40 Respiratory Rate 15 04/12/22 08:40 Blood Pressure 121/75 04/12/22 08:40 Pulse Oximetry 100 04/12/22 08:40 Oxygen Delivery Method 04/12/22 08:40 Course Orders Ordered: ED Orders 04/12/22 09:04 Complete Blood Count AUTO DIFF Stat Comprehensive Metabolic Panel Stat Lipase Stat 04/12/22 10:43 US abdomen limited Stat Vital Signs Vital signs: Vital Signs - 8 hr 04/12/22 08:40 04/12/22 11:44 04/12/22 11:44 Temperature 97.7 F Pulse Rate 77 82 Respiratory Rate 15 Blood Pressure 121/75 123/76 Pulse Oximetry 100 100 Oxygen Delivery Method Room Air MDM - Abdominal Pain Lab Data 04/12/22 09:04 04/12/22 09:04 Labs: Lab Results 04/12/22 04/12/22 Range/Units 09:04 09:04 WBC 6.7 (4.5-11.0) X10^3/uL RBC 4.18 (4.0-5.2) X10^6/uL Hgb 13.0 (12.0-16.0) g/dL Hct 38.3 (36-46) % MCV 91.7 (80-100) fL MCH 31.2 (26-34) PG MCHC 34.0 (30-36) % RDW 12.7 (11.6-14.8) % Plt Count 249 (150-400) X10^3/uL Neut % (Auto) 60.1 (50-75) % Lymph % (Auto) 25.4 (25-40) % [place] % (Auto) 6.7 (3-14) % Eos % (Auto) 7.1 H (2-4) % Baso % (Auto) 0.7 (0-2) % Neut # (Auto) 4000 (8003-5924) /uL Lymph # (Auto) 1700 (6350-7228) /uL [place] # (Auto) 400 (0-900) /uL Eos # (Auto) 500 H (0-450) /uL Baso # (Auto) 0 (0-100) /uL Sodium 139 (137-145) mmol/L Potassium 4.1 (3.4-5.1) mmol/L Chloride 102 (98-107) mmol/L Carbon Dioxide 28 (22-32) mmol/L BUN 15 (7-17) mg/dL Creatinine 0.54 (0.52-1.04) mg/dL Estimated GFR > 60 (>60) mL/min BUN/Creatinine Ratio 27.8 H (6-22) Glucose 93 (70-100) mg/dL Calcium 8.9 (8.4-10.2) mg/dL Total Bilirubin 0.7 (0.2-1.3) mg/dL AST 93 H (14-36) IU/L ALT 48 H (<35) IU/L Alkaline Phosphatase 64 (38-126) U/L Total Protein 8.3 H (6.3-8.2) g/dL Albumin 4.4 (3.5-5.0) g/dL Globulin 3.9 (1.7-4.1) g/dL Albumin/Globulin Ratio 1.1 (1.0-2.8) Lipase 41 (23-300) U/L Point of care testing: Point of Care Testing Test Results Negative Urine Dip Bedside Urine Glucose Negative Bedside Urine Bilirubin - Negative Bedside Urine Ketone - Negative Urine Specific [place] 1.010 Bedside Urine Occult Blood +/- Bedside Urine pH 7.5 Bedside Urine Protein - Negative Bedside Urine Urobilinogen - Negative Bedside Urine Nitrite - Negative Bedside Urine Leukocytes - Negative Esterase Imaging Data US - abdomen: Radiologist's Impression: [address] [id number] ReportSigned Patient: Cecelia BhandariMR#: [id number]: 1990Acct:[id number]/Sex: 31 / FDate of Service: 04/12/22Loc: EDAccession Number: [id number] Procedure: US abdomen limited Ordering Provider: Mc Rsoe MD PROCEDURE: US ABDOMEN LIMITED INDICATIONS: RUQ PAIN TECHNIQUE: Real-time focused scanning was performed of the abdomen, with image documentation. COMPARISON: None. FINDINGS: Liver measures 15 cm. Overall echotexture is within normal limits. Normal appearance of the gallbladder and biliary tree on ultrasound. CBD measures 3 mm. Pancreas is not well seen. IMPRESSION: No acute right upper quadrant sonographic abnormality. Dictated by: Nadir Waters M.D. on 04/12/2022 at 11:22 Approved by: Nadir Waters M.D. on 04/12/2022 at 11:22 [facility] Narrative Medical decision making narrative: Patient brought in by operating room staff for unwitnessed syncope. Patient is with environmental services. Patient was found on the floor. Complains of headache and left knee pain. Patient is able to give her name and date of . Denies any history of seizures heart attack or strokes. She feels very tired she states. Does not recall what happened to her. However she denies any chest pain today prior to arrival. Blood sugar 124. After exam and history, CBC CMP lipase gallbladder ultrasound have been ordered. Patient in no pain at this time. No nausea. MDM CC: Abdominal pain Complicating co-morbidities: None Data collected from: Patient Medical records reviewed: No previous gallbladder ultrasound Differential considered: Includes but not limited to cholecystitis/cholelithiasis/biliary dyskinesia/gastritis/hepatitis Exam documented above, pertinent findings include: Nontender abdomen Lab Test results independently reviewed as above. Pertinent findings: CBC without leukocytosis. Normal lipase. Urine negative. Urinalysis negative. Slightly elevated ALT and AST Imaging studies independently reviewed: Abdominal ultrasound no acute process Treatments: No medications required. Symptom free at time of visit Re-evaluations: 12:25 p.m.. Review results with patient. At this time laboratory studies do show elevated liver enzymes. She may need continued workup for her gallbladder. Referral general surgery given to her. She may need a HIDA scan. This can be done outpatient. Discussion: Appropriate for discharge home. Exam and imaging are reassuring. Liver enzymes may still indicated biliary source of her pain. However they are slightly elevated. She will need outpatient HIDA scan. Return precautions reviewed with her. Dietary recommendations given to her. No fried fatty greasy foods which she states she does not usually do any ways. The weekend alcohol consumption may have triggered her gallbladder. However nontoxic at discharge. Symptom free. She desires discharge home Diagnosis: Abdominal pain Discharge Plan Departure Patient Disposition: Home Clinical Impression: Abdominal pain Instructions: DI for Abdominal Pain-Adult Activity Restrictions/Additional Instructions: Please call provided general surgery office today to make appointment for evaluation of your abdominal pain. You may do schedule a HIDA scan of your gallbladder for further testing for the function of your gallbladder. Please continue no fried fatty greasy foods. Return if worse if any questions or concerns. Prescriptions: No Action epinephrine 0.3 mg/0.3 mL auto-injector 0.3 mg IM ONCE PRN (Reason: anaphylaxis) Qty: 2 0RF Rx Instructions: as a single dose; may repeat once montelukast [Singulair] 10 mg tablet 10 mg PO DAILY Qty: 30 0RF norethindrone (contraceptive) 0.35 mg tablet 0.35 mg PO DAILY Qty: 84 3RF prednisone 20 mg tablet 40 mg PO DAILY PRN (Reason: swelling) Qty: 40 0RF Rx Instructions: use 2 tabs daily for 5 days if allergies spironolactone 100 mg tablet 100 mg PO DAILY Qty: 90 1RF Referrals: David Mcdowell MD [Physician] - Stand Alone Forms: Patient Portal/API
[2022-04-12 11:44] VITALS: BP 123/76; PULSE 82; O2SAT 100
== END 2022-04-12 12:38 | disposition home or self-care (01) ==
PROVIDERS: Emergency Provider Emergency Medicine
DX: R10.11 Right upper quadrant pain (principal)
CPT/HCPCS: 36415; 76705; 80053; 81003; 81025; 83690; 85025; 99283; 99284